=== PATIENT | male | born 1970 | race Caucasian/White ===

== ENCOUNTER → 2019-05-29 | Outpatient (REF) | payer OTHER ==
[2019-05-29 10:58] LABS: BASO % 0.4 % (0.0-1.0); EOS # 0.3 10^3/uL (0.0-0.50); EOS % 3.6 % (0.0-3.0); HEMATOCRIT 47.1 % (42.0-52.0); HEMOGLOBIN 15.9 g/dl (13.5-17.5); LYMPH # 1.8 10^3/uL (1.5-4.5); LYMPH % 23.5 % (24.0-44.0); MEAN CORPUSCULAR HEMOGLOBIN 31.5 pg (27.0-33.0); MEAN CORPUSCULAR HGB CONC 33.8 g/dl (32.0-36.5); MEAN CORPUSCULAR VOLUME 93.3 fl (80.0-96.0); MONO # 0.9 10^3/uL (0.0-0.8); MONO % 11.7 % (0.0-5.0); NEUTROPHILS # 4.7 10^3/uL (1.8-7.7); NEUTROPHILS % 60.5 % (36.0-66.0); PLATELET COUNT, AUTOMATED 231 10^3/uL (150-450); RED BLOOD COUNT 5.05 10^6/uL (4.30-6.10); WHITE BLOOD COUNT 7.8 10^3/uL (4.0-10.0)
[2019-05-29 11:13] LABS: ALT/SGPT 24 U/L (12-78); BILIRUBIN,TOTAL 0.7 MG/DL (0.2-1.0); BLOOD UREA NITROGEN 24 MG/DL (7-18); CARBON DIOXIDE LEVEL 28 MEQ/L (21-32); CHLORIDE LEVEL 106 MEQ/L (98-107); CHOLESTEROL LEVEL 238 MG/DL (<200); CHOLESTEROL RISK RATIO 4.666 (<5); CREATININE FOR GFR 1.29 MG/DL (0.70-1.30); FREE T4 0.74 NG/DL (0.76-1.46); GLOMERULAR FILTRATION RATE > 60.0 (>60); GLUCOSE, FASTING 104 MG/DL (70-100); HDL CHOLESTEROL 51 MG/DL (>40); LDL CHOLESTEROL 163 MG/DL (<100); NON-HDL-C 187 MG/DL; POTASSIUM SERUM 4.2 MEQ/L (3.5-5.1); SODIUM LEVEL 141 MEQ/L (136-145); TOTAL PROTEIN 7.7 GM/DL (6.4-8.2); TRIGLYCERIDES LEVEL 119 MG/DL (<150)
[2019-05-29 11:24] LABS: HEMOGLOBIN A1c 5.8 %
== END ==
LOC: M SFHCPLAZ 08:13
PROVIDERS: ATTEND Physician Assistant Medical
DX: Z13.220 Encounter for screening for lipoid disorders (principal); Z00.00 Encounter for general adult medical examination without abnormal findings; E66.9 Obesity, unspecified

== ENCOUNTER → 2022-11-24 | Outpatient (CLI) | payer OTHER ==
[2022-11-24 14:02] LABS: BASO % 0.6 % (0.0-1.0); EOS # 0.2 10^3/uL (0.0-0.5); EOS % 2.5 % (0.0-3.0); HEMATOCRIT 47.8 % (42.0-52.0); HEMOGLOBIN 16.1 g/dl (13.5-17.5); LYMPH % 31.4 % (24.0-44.0); MEAN CORPUSCULAR HEMOGLOBIN 30.7 pg (27.0-33.0); MEAN CORPUSCULAR HGB CONC 33.7 g/dl (32.0-36.5); MEAN CORPUSCULAR VOLUME 91.2 fl (80.0-96.0); MONO # 0.8 10^3/uL (0.0-0.8); MONO % 12.6 % (2.0-8.0); NEUTROPHILS # 3.4 10^3/uL (1.5-8.5); NEUTROPHILS % 52.6 % (36.0-66.0); PLATELET COUNT, AUTOMATED 277 10^3/uL (150-450); RED BLOOD COUNT 5.24 10^6/uL (4.30-6.10); WHITE BLOOD COUNT 6.4 10^3/uL (4.0-10.0)
[2022-11-24 14:23] LABS: HEMOGLOBIN A1c 5.9 % (4.0-6.0)
[2022-11-24 14:28] LABS: ALBUMIN 4.2 G/DL (3.2-5.2); ALKALINE PHOSPHATASE 72 U/L (46-116); ALT/SGPT 20 U/L (7.0-40); AST/SGOT 27 U/L (<34); BILIRUBIN,TOTAL 0.6 MG/DL (0.3-1.2); BLOOD UREA NITROGEN 24 MG/DL (9-23); CALCIUM LEVEL 9.9 MG/DL (8.5-10.1); CARBON DIOXIDE LEVEL 29 MMOL/L (20-31); CHLORIDE LEVEL 101 MMOL/L (98-107); CHOLESTEROL LEVEL 239 MG/DL (<200); CHOLESTEROL RISK RATIO 4.41 (<5); CREATININE FOR GFR 1.21 MG/DL (0.70-1.30); GLOMERULAR FILTRATION RATE > 60.0 (>56); GLUCOSE, FASTING 108 MG/DL (60-100); HDL CHOLESTEROL 54.1 MG/DL (>40); LDL CHOLESTEROL 158.5 MG/DL (<100); NON-HDL-C 185 MG/DL; POTASSIUM SERUM 5.1 MMOL/L (3.5-5.1); SODIUM LEVEL 138 MMOL/L (136-145); TOTAL PROTEIN 7.6 G/DL (5.7-8.2); TRIGLYCERIDES LEVEL 132 MG/DL (<150)
[2022-11-24 14:29] LABS: THYROID STIMULATING HORMONE 4.242 uIU/ML (0.55-4.78)
[2022-11-24 14:30] LABS: FREE T4 0.86 NG/DL (0.89-1.76)
== END ==
LOC: M PLALAB 10:22
PROVIDERS: ATTEND Physician Assistant Medical
DX: E11.69 Type 2 diabetes mellitus with other specified complication (principal); M24.152 Other articular cartilage disorders, left hip; M24.151 Other articular cartilage disorders, right hip; M51.37 Other intervertebral disc degeneration, lumbosacral region; M54.32 Sciatica, left side; M25.552 Pain in left hip; E78.5 Hyperlipidemia, unspecified; E03.9 Hypothyroidism, unspecified; E66.9 Obesity, unspecified

== ENCOUNTER → 2023-04-07 | Outpatient (CLI) | payer OTHER | LOC: M PLAIMG 10:35 | PROVIDERS: ATTEND Physician Assistant | DX: M54.32 Sciatica, left side (principal) ==

== ENCOUNTER → 2023-05-10 | Outpatient (CLI) | payer OTHER ==
[2023-05-10 15:00] LABS: BASO % 0.5 % (0.0-1.0); EOS # 0.1 10^3/uL (0.0-0.5); EOS % 2.5 % (0.0-3.0); HEMATOCRIT 44.8 % (42.0-52.0); HEMOGLOBIN 15.2 g/dl (13.5-17.5); LYMPH # 1.7 10^3/uL (1.5-5.0); LYMPH % 29.9 % (24.0-44.0); MEAN CORPUSCULAR HEMOGLOBIN 30.5 pg (27.0-33.0); MEAN CORPUSCULAR HGB CONC 33.9 g/dl (32.0-36.5); MEAN CORPUSCULAR VOLUME 89.8 fl (80.0-96.0); MONO # 0.7 10^3/uL (0.0-0.8); MONO % 12.8 % (2.0-8.0); NEUTROPHILS # 3.1 10^3/uL (1.5-8.5); NEUTROPHILS % 54.1 % (36.0-66.0); PLATELET COUNT, AUTOMATED 231 10^3/uL (150-450); RED BLOOD COUNT 4.99 10^6/uL (4.30-6.10); WHITE BLOOD COUNT 5.7 10^3/uL (4.0-10.0)
[2023-05-10 15:02] LABS: ALBUMIN 4.2 G/DL (3.2-5.2); ALKALINE PHOSPHATASE 65 U/L (46-116); ALT/SGPT 19 U/L (7.0-40); AST/SGOT 25 U/L (<34); BILIRUBIN,TOTAL 0.7 MG/DL (0.3-1.2); BLOOD UREA NITROGEN 22 MG/DL (9-23); CARBON DIOXIDE LEVEL 26 MMOL/L (20-31); CHLORIDE LEVEL 104 MMOL/L (98-107); CHOLESTEROL LEVEL 209 MG/DL (<200); CHOLESTEROL RISK RATIO 4.34 (<5); GLOMERULAR FILTRATION RATE > 60.0 (>56); GLUCOSE, FASTING 99 MG/DL (60-100); HDL CHOLESTEROL 48.1 MG/DL (>40); LDL CHOLESTEROL 135.1 MG/DL (<100); NON-HDL-C 160.9 MG/DL; POTASSIUM SERUM 4.3 MMOL/L (3.5-5.1); SODIUM LEVEL 137 MMOL/L (136-145); TOTAL PROTEIN 7.5 G/DL (5.7-8.2); TRIGLYCERIDES LEVEL 129 MG/DL (<150)
[2023-05-10 17:39] LABS: HEMOGLOBIN A1c 6.2 % (4.0-6.0)
== END ==
LOC: M PLALAB 10:36
PROVIDERS: ATTEND Physician Assistant Medical
DX: R03.0 Elevated blood-pressure reading, without diagnosis of hypertension (principal); E66.9 Obesity, unspecified; Z13.220 Encounter for screening for lipoid disorders

== ENCOUNTER → 2023-12-19 | Outpatient (CLI) | payer OTHER ==
[2023-12-19 16:10] LABS: BASO % 0.4 % (0.0-1.0); EOS # 0.1 10^3/uL (0.0-0.5); EOS % 1.7 % (0.0-3.0); HEMATOCRIT 45.6 % (42.0-52.0); HEMOGLOBIN 15.3 g/dl (13.5-17.5); LYMPH # 1.8 10^3/uL (1.5-5.0); LYMPH % 23.7 % (24.0-44.0); MEAN CORPUSCULAR HEMOGLOBIN 30.8 pg (27.0-33.0); MEAN CORPUSCULAR HGB CONC 33.6 g/dl (32.0-36.5); MEAN CORPUSCULAR VOLUME 91.9 fl (80.0-96.0); MONO # 0.8 10^3/uL (0.0-0.8); MONO % 10.5 % (2.0-8.0); NEUTROPHILS # 4.8 10^3/uL (1.5-8.5); NEUTROPHILS % 63.4 % (36.0-66.0); PLATELET COUNT, AUTOMATED 247 10^3/uL (150-450); RED BLOOD COUNT 4.96 10^6/uL (4.30-6.10); WHITE BLOOD COUNT 7.6 10^3/uL (4.0-10.0)
[2023-12-19 16:22] LABS: ERYTHROCYTE SEDIMENTATION RATE 25 mm/hr (0-20)
[2023-12-19 16:32] LABS: URIC ACID 6.4 MG/DL (3.7-9.2)
[2023-12-19 20:26] LABS: RHEUMATOID FACTOR QUANT < 3.5 IU/ML (<14)
[2023-12-21 14:09] LABS: ANTINUCLEAR ANTIBODIES DIRECT Negative (Negative)
== END ==
LOC: M PLALAB 12:05
PROVIDERS: ATTEND Orthopaedic Surgery
DX: M16.12 Unilateral primary osteoarthritis, left hip (principal)

== ENCOUNTER → 2024-02-12 | Outpatient (CLI) | payer OTHER ==
[~2024-02-12] MED LIST: ISOVUE-300 61% 100ML VIAL As Ordered ONE; LIDOCAINE 1% MDV 20ML VIAL As Ordered ONE; TRIAMCINOLONE ACETONIDE SUSP 40MG/ML 1ML VIAL As Ordered ONE
== END ==
LOC: M RAD 13:24
PROVIDERS: ATTEND Orthopaedic Surgery
DX: M16.12 Unilateral primary osteoarthritis, left hip (principal)
CPT/HCPCS: 20610; 77002; J3301; Q9967

== ENCOUNTER 2024-04-09 11:20 | Observation (INO) | payer OTHER ==
[~2024-04-09] VITALS: Ht 165.1 cm; Wt 96.5 kg
[2024-04-09] MEDS ORDERED: MELO15TA28 PO (11:31)
[2024-04-09 12:41] LABS: BASO % 0.4 % (0.0-1.0); EOS # 0.1 10^3/uL (0.0-0.5); EOS % 0.5 % (0.0-3.0); HEMATOCRIT 45.5 % (42.0-52.0); HEMOGLOBIN 15.5 g/dl (13.5-17.5); LYMPH # 2.3 10^3/uL (1.5-5.0); LYMPH % 20.8 % (24.0-44.0); MEAN CORPUSCULAR HEMOGLOBIN 30.6 pg (27.0-33.0); MEAN CORPUSCULAR HGB CONC 34.1 g/dl (32.0-36.5); MEAN CORPUSCULAR VOLUME 89.9 fl (80.0-96.0); MONO # 1.5 10^3/uL (0.0-0.8); MONO % 13.6 % (2.0-8.0); NEUTROPHILS % 64.3 % (36.0-66.0); PLATELET COUNT, AUTOMATED 200 10^3/uL (150-450); RED BLOOD COUNT 5.06 10^6/uL (4.30-6.10); WHITE BLOOD COUNT 10.9 10^3/uL (4.0-10.0)
[2024-04-09 13:07] LABS: ALBUMIN 3.6 G/DL (3.2-5.2); ALKALINE PHOSPHATASE 89 U/L (46-116); ALT/SGPT 37 U/L (7.0-40); AST/SGOT 41 U/L (<34); BILIRUBIN,DIRECT 0.4 MG/DL (<0.4); BILIRUBIN,TOTAL 1.6 MG/DL (0.3-1.2); BLOOD UREA NITROGEN 19 MG/DL (9-23); CALCIUM LEVEL 8.9 MG/DL (8.5-10.1); CARBON DIOXIDE LEVEL 25 MMOL/L (20-31); CHLORIDE LEVEL 99 MMOL/L (98-107); CK-MB VALUE MASS 4.4 NG/ML (<3.6); CPK CREATINE PHOSPHOKINASE 366 U/L (46-171); CREATININE FOR GFR 1.31 MG/DL (0.70-1.30); GLOMERULAR FILTRATION RATE > 60.0 (>56); GLUCOSE, FASTING 173 MG/DL (60-100); POTASSIUM SERUM 3.8 MMOL/L (3.5-5.1); SODIUM LEVEL 134 MMOL/L (136-145)
[2024-04-09 13:08] LABS: THYROXINE (T4) 7.3 UG/DL (4.5-10.9)
[2024-04-09 13:09] LABS: THYROID STIMULATING HORMONE 4.682 uIU/ML (0.55-4.78)
[2024-04-09] MEDS: NS 500 ML IV ONE (13:10)
[2024-04-09] MEDS: ASPIRIN 81MG CHEW TABLET PO ONE (13:38)
[2024-04-09] MEDS ORDERED: ISOVUE-370 76% 100ML VIAL As Ordered ONE (13:53)
[2024-04-09 14:15] LABS: CK-MB VALUE MASS 4.6 NG/ML (<3.6); MB/CK RELATIVE INDEX 1.23 (< OR =4)
[2024-04-09] MEDS ORDERED: HEPARIN DRIP 25,000 UNITS in IV 1 EA IV SCH (16:00)
[2024-04-09 16:02] LABS: INR 1.23; PARTIAL THROMBOPLASTIN TIME 25.6 SECONDS (24.8-34.2); PROTHROMBIN TIME 15.1 SECONDS (12.5-14.5)
[2024-04-09] MEDS ORDERED: MAALOX 30 ML SUSP *UDC PO PRN (16:35)
[2024-04-09] MEDS ORDERED: MOM 30ML SUSPENSION UDC PO PRN (16:35)
[2024-04-09] MEDS ORDERED: HEPARIN SOD (PORCINE) 5000UNITS/ML 1ML VIAL/SYRINGE IV ONE (16:35)
[2024-04-09] MEDS ORDERED: ACETAMINOPHEN TAB 650MG DOSE (2X325MG) PO PRN (16:35)
[2024-04-09] MEDS ORDERED: HEPARIN SOD (PORCINE) 5000UNITS/ML 1ML VIAL/SYRINGE IV PRN (16:35)
[2024-04-09] MEDS: HEPARIN SOD (PORCINE) 5000UNITS/ML 1ML VIAL/SYRINGE IV ONE (17:07)
[2024-04-09] MEDS: HEPARIN DRIP 25,000 UNITS in IV 1 EA IV SCH (17:12)
[2024-04-09 17:35] LABS: HEMATOCRIT 44.2 % (42.0-52.0); HEMOGLOBIN 15.5 g/dl (13.5-17.5); MEAN CORPUSCULAR HEMOGLOBIN 31.1 pg (27.0-33.0); MEAN CORPUSCULAR HGB CONC 35.1 g/dl (32.0-36.5); MEAN CORPUSCULAR VOLUME 88.8 fl (80.0-96.0); PLATELET COUNT, AUTOMATED 184 10^3/uL (150-450); RED BLOOD COUNT 4.98 10^6/uL (4.30-6.10); WHITE BLOOD COUNT 10.1 10^3/uL (4.0-10.0)
[2024-04-09] MEDS: NS 1,000 ML IV SCH (17:44)
[2024-04-09] MEDS ORDERED: HOME MED LIST COMPLETE! XX SCH (17:55)
[2024-04-09 18:17] LABS: HEPATITIS B SURFACE ANTIGEN NEGATIVE (NEGATIVE)
[2024-04-09 18:39] LABS: HEPATITIS B CORE ANTIBODY IGM NEGATIVE (NEGATIVE); HEPATITIS C VIRUS ABY INDEX < 0.02 INDEX (<0.8)
[2024-04-09 19:47] LABS: CK-MB VALUE MASS 4.2 NG/ML (<3.6); MB/CK RELATIVE INDEX 1.23 (< OR =4)
[2024-04-09] MEDS: DOCUSATE SODIUM 100MG CAPSULE PO SCH (20:48)
[2024-04-09 22:01] VITALS: BP 136/85; TEMP 97.2; O2SAT 95
[2024-04-09 23:55] VITALS: BP 119/75; TEMP 97; O2SAT 96
[2024-04-10] VITALS: BP 119/75; TEMP 97; O2SAT 96
[2024-04-10 00:25] LABS: CK-MB VALUE MASS 4.7 NG/ML (<3.6); MB/CK RELATIVE INDEX 1.45 (< OR =4)
[2024-04-10 04:18] VITALS: BP 112/74; TEMP 97.1; O2SAT 98
[2024-04-10 05:59] LABS: BASO % 0.3 % (0.0-1.0); EOS # 0.2 10^3/uL (0.0-0.5); EOS % 2.6 % (0.0-3.0); LYMPH # 2.3 10^3/uL (1.5-5.0); LYMPH % 26.3 % (24.0-44.0); MEAN CORPUSCULAR HEMOGLOBIN 30.9 pg (27.0-33.0); MEAN CORPUSCULAR HGB CONC 33.3 g/dl (32.0-36.5); MEAN CORPUSCULAR VOLUME 92.8 fl (80.0-96.0); MONO % 11.2 % (2.0-8.0); NEUTROPHILS # 5.2 10^3/uL (1.5-8.5); NEUTROPHILS % 59.3 % (36.0-66.0); PLATELET COUNT, AUTOMATED 170 10^3/uL (150-450); RED BLOOD COUNT 4.33 10^6/uL (4.30-6.10); WHITE BLOOD COUNT 8.8 10^3/uL (4.0-10.0)
[2024-04-10 06:11] LABS: HEMOGLOBIN 13.4 g/dl (13.5-17.5)
[2024-04-10 06:12] LABS: HEMATOCRIT 40.2 % (42.0-52.0)
[2024-04-10 06:22] LABS: ALBUMIN 2.9 G/DL (3.2-5.2); ALKALINE PHOSPHATASE 70 U/L (46-116); ALT/SGPT 28 U/L (7.0-40); AST/SGOT 28 U/L (<34); BLOOD UREA NITROGEN 17 MG/DL (9-23); CALCIUM LEVEL 8.1 MG/DL (8.5-10.1); CARBON DIOXIDE LEVEL 28 MMOL/L (20-31); CHLORIDE LEVEL 104 MMOL/L (98-107); CREATININE FOR GFR 1.09 MG/DL (0.70-1.30); GLOMERULAR FILTRATION RATE > 60.0 (>56); GLUCOSE, FASTING 175 MG/DL (60-100); MAGNESIUM LEVEL 2.1 MG/DL (1.8-2.4); POTASSIUM SERUM 4.1 MMOL/L (3.5-5.1); SODIUM LEVEL 138 MMOL/L (136-145); TOTAL PROTEIN 5.9 G/DL (5.7-8.2)
[2024-04-10 07:30] VITALS: BP 118/78; TEMP 97.3; O2SAT 98
[2024-04-10] MEDS ORDERED: ELIQ5TAB4 PO (10:44)
[2024-04-10] MEDS: APIXABAN 5 MG TAB (ELIQUIS) PO ONE (11:12)
[2024-04-10] MEDS ORDERED: ELIQ5TAB PO (11:29)
[2024-04-10 12:00] VITALS: BP 130/84; TEMP 97.7; O2SAT 94
[2024-04-10 13:15] VITALS: BP 135/87; O2SAT 98
[2024-04-10] MEDS ORDERED: APIXABAN 5 MG TAB (ELIQUIS) PO SCH (21:00)
[2024-04-16] MEDS ORDERED: APIXABAN 5 MG TAB (ELIQUIS) PO SCH (21:00)
== END 2024-04-10 15:22 | disposition home or self-care (01) ==
LOC: M ED 11:20 → M ED INP 11:21 → M PCU 21:53
PROVIDERS: ADMIT Internal Medicine; ATTEND Internal Medicine
DX: I26.99 Other pulmonary embolism without acute cor pulmonale (principal); R06.00 Dyspnea, unspecified; R79.89 Other specified abnormal findings of blood chemistry; R74.02 Elevation of levels of lactic acid dehydrogenase [LDH]; N17.9 Acute kidney failure, unspecified; R74.01 Elevation of levels of liver transaminase levels; D72.829 Elevated white blood cell count, unspecified; M16.12 Unilateral primary osteoarthritis, left hip; I82.441 Acute embolism and thrombosis of right tibial vein; I82.890 Acute embolism and thrombosis of other specified veins; K76.0 Fatty (change of) liver, not elsewhere classified; R00.0 Tachycardia, unspecified; I45.2 Bifascicular block; Z79.899 Other long term (current) drug therapy
CPT/HCPCS: 36415; 71045; 71275; 76705; 80048; 80053; 80074; 80076; 81001; 82550; 82553; 83605; 83735; 83880; 84436; 84443; 84484; 85025; 85027; 85610; 85730; 87040; 87486; 87581; 87633; 87798; 93005; 93041; 93306; 93970; 94760; 96374; 96376; 97161; 97530; 99285; Q9967

== ENCOUNTER → 2024-04-22 | Outpatient (CLI) | payer OTHER, SELFPAY ==
[~2024-04-22] MED LIST changes: +ELIQ5TAB PO; +ELIQ5TAB4 PO; -ISOVUE-300 61% 100ML VIAL As Ordered ONE; -LIDOCAINE 1% MDV 20ML VIAL As Ordered ONE; +MELO15TA28 PO; -TRIAMCINOLONE ACETONIDE SUSP 40MG/ML 1ML VIAL As Ordered ONE
[2024-04-22 18:22] LABS: INR 1.06; PARTIAL THROMBOPLASTIN TIME 26.7 SECONDS (24.8-34.2); PROTHROMBIN TIME 13.5 SECONDS (12.5-14.5)
[2024-04-22 18:26] LABS: BASO # 0.1 10^3/uL (0.0-0.2); BASO % 0.7 % (0.0-1.0); EOS # 0.2 10^3/uL (0.0-0.5); EOS % 2.3 % (0.0-3.0); HEMATOCRIT 46.3 % (42.0-52.0); HEMOGLOBIN 15.7 g/dl (13.5-17.5); LYMPH # 2.2 10^3/uL (1.5-5.0); LYMPH % 29.8 % (24.0-44.0); MEAN CORPUSCULAR HEMOGLOBIN 30.8 pg (27.0-33.0); MEAN CORPUSCULAR HGB CONC 33.9 g/dl (32.0-36.5); MONO # 0.8 10^3/uL (0.0-0.8); MONO % 10.5 % (2.0-8.0); NEUTROPHILS # 4.2 10^3/uL (1.5-8.5); NEUTROPHILS % 56.4 % (36.0-66.0); PLATELET COUNT, AUTOMATED 320 10^3/uL (150-450); RED BLOOD COUNT 5.09 10^6/uL (4.30-6.10); WHITE BLOOD COUNT 7.4 10^3/uL (4.0-10.0)
[2024-04-22 18:28] LABS: CK-MB VALUE MASS 4.5 NG/ML (<3.6)
[2024-04-22 18:52] LABS: ALBUMIN 4.3 G/DL (3.2-5.2); ALKALINE PHOSPHATASE 87 U/L (46-116); ALT/SGPT 25 U/L (7.0-40); AST/SGOT 23 U/L (<34); BILIRUBIN,TOTAL 0.8 MG/DL (0.3-1.2); BLOOD UREA NITROGEN 20 MG/DL (9-23); CALCIUM LEVEL 9.9 MG/DL (8.5-10.1); CARBON DIOXIDE LEVEL 28 MMOL/L (20-31); CHLORIDE LEVEL 103 MMOL/L (98-107); CPK CREATINE PHOSPHOKINASE 245 U/L (46-171); CREATININE FOR GFR 1.18 MG/DL (0.70-1.30); GLOMERULAR FILTRATION RATE > 60.0 (>56); GLUCOSE, FASTING 86 MG/DL (60-100); MB/CK RELATIVE INDEX 1.83 (< OR =4); POTASSIUM SERUM 4.3 MMOL/L (3.5-5.1); SODIUM LEVEL 138 MMOL/L (136-145); TOTAL PROTEIN 7.9 G/DL (5.7-8.2)
== END ==
LOC: M PLALAB 14:52
PROVIDERS: ATTEND Physician Assistant Medical
DX: I26.94 Multiple subsegmental thrombotic pulmonary emboli without acute cor pulmonale (principal); D72.829 Elevated white blood cell count, unspecified; E87.20 Acidosis, unspecified; R74.01 Elevation of levels of liver transaminase levels; R79.89 Other specified abnormal findings of blood chemistry

== ENCOUNTER 2024-07-20 10:14 | Inpatient (IN) | payer OTHER, SELFPAY ==
[~2024-07-20] VITALS: Ht 165.1 cm; Wt 97.9 kg
[2024-07-20] MEDS ORDERED: ONDANSETRON 4MG 2ML VIAL IV ONE (11:30)
[2024-07-20] MEDS ORDERED: MORPHINE 4 MG/ML 1ML VIAL IV ONE (11:30)
[2024-07-20] MEDS: ACETAMINOPHEN *IV* 1,000 MG in IV 1 EA IV ONE (12:37)
[2024-07-20 12:46] LABS: BASO % 0.4 % (0.0-1.0); EOS # 0.3 10^3/uL (0.0-0.5); EOS % 2.5 % (0.0-3.0); HEMATOCRIT 39.9 % (42.0-52.0); HEMOGLOBIN 13.6 g/dl (13.5-17.5); LYMPH # 1.8 10^3/uL (1.5-5.0); LYMPH % 17.9 % (24.0-44.0); MEAN CORPUSCULAR HEMOGLOBIN 30.5 pg (27.0-33.0); MEAN CORPUSCULAR HGB CONC 34.1 g/dl (32.0-36.5); MEAN CORPUSCULAR VOLUME 89.5 fl (80.0-96.0); MONO # 1.4 10^3/uL (0.0-0.8); MONO % 14.1 % (2.0-8.0); NEUTROPHILS # 6.6 10^3/uL (1.5-8.5); NEUTROPHILS % 64.9 % (36.0-66.0); PLATELET COUNT, AUTOMATED 197 10^3/uL (150-450); RED BLOOD COUNT 4.46 10^6/uL (4.30-6.10); WHITE BLOOD COUNT 10.1 10^3/uL (4.0-10.0)
[2024-07-20] MEDS ORDERED: ACET1TAB55 PO (12:46)
[2024-07-20] MEDS ORDERED: HOME MED LIST COMPLETE! XX SCH (12:50)
[2024-07-20 13:02] LABS: INR 1.2; PARTIAL THROMBOPLASTIN TIME 25.7 SECONDS (24.8-34.2); PROTHROMBIN TIME 14.8 SECONDS (12.5-14.5)
[2024-07-20 13:09] LABS: ALBUMIN 3.6 G/DL (3.2-5.2); ALKALINE PHOSPHATASE 87 U/L (46-116); ALT/SGPT 19 U/L (7.0-40); AST/SGOT 23 U/L (<34); BILIRUBIN,DIRECT 0.2 MG/DL (<0.4); BILIRUBIN,TOTAL 0.9 MG/DL (0.3-1.2); BLOOD UREA NITROGEN 18 MG/DL (9-23); CALCIUM LEVEL 9.1 MG/DL (8.5-10.1); CARBON DIOXIDE LEVEL 29 MMOL/L (20-31); CHLORIDE LEVEL 105 MMOL/L (98-107); CREATININE FOR GFR 0.91 MG/DL (0.70-1.30); GLOMERULAR FILTRATION RATE > 60.0 (>56); GLUCOSE, FASTING 99 MG/DL (60-100); POTASSIUM SERUM 4.3 MMOL/L (3.5-5.1); SODIUM LEVEL 138 MMOL/L (136-145); TOTAL PROTEIN 7.2 G/DL (5.7-8.2)
[2024-07-20] MEDS ORDERED: ISOVUE-370 76% 100ML VIAL As Ordered ONE (13:18)
[2024-07-20 15:53] LABS: CK-MB VALUE MASS 1.4 NG/ML (<3.6)
[2024-07-20 15:55] LABS: CPK CREATINE PHOSPHOKINASE 218 U/L (46-171); MB/CK RELATIVE INDEX 0.64 (< OR =4)
[2024-07-20] MEDS: HEPARIN SOD (PORCINE) 5000UNITS/ML 1ML VIAL/SYRINGE IV ONE (16:45)
[2024-07-20] MEDS: HEPARIN DRIP 25,000 UNITS in IV 1 EA IV SCH (16:47)
[2024-07-20] MEDS ORDERED: HEPARIN SOD (PORCINE) 5000UNITS/ML 1ML VIAL/SYRINGE IV PRN (17:00)
[2024-07-20] MEDS: NS 1,000 ML IV SCH (19:12)
[2024-07-20 22:05] VITALS: BP 166/88; TEMP 98.4; O2SAT 96
[2024-07-20 22:14] LABS: HEMATOCRIT 39.3 % (42.0-52.0); HEMOGLOBIN 13.1 g/dl (13.5-17.5); MEAN CORPUSCULAR HEMOGLOBIN 30.4 pg (27.0-33.0); MEAN CORPUSCULAR HGB CONC 33.3 g/dl (32.0-36.5); MEAN CORPUSCULAR VOLUME 91.2 fl (80.0-96.0); PLATELET COUNT, AUTOMATED 217 10^3/uL (150-450); RED BLOOD COUNT 4.31 10^6/uL (4.30-6.10); WHITE BLOOD COUNT 9.8 10^3/uL (4.0-10.0)
[2024-07-20] MEDS ORDERED: ACETAMINOPHEN TAB 650MG DOSE (2X325MG) PO PRN (22:25)
[2024-07-20] MEDS: MELOXICAM (MOBIC) 7.5 MG TAB PO ONE (23:13)
[2024-07-20] MEDS: DICLOFENAC EPOLAMINE 1.3% PATCH TOP ONE (23:13)
[2024-07-20 23:14] VITALS: BP 154/88; TEMP 99.3; O2SAT 97
[2024-07-20] MEDS: LIDOCAINE 5% (LIDODERM) PATCH TD ONE (23:14)
[2024-07-21 03:45] VITALS: BP 118/67; TEMP 98.2; O2SAT 100
[2024-07-21 06:44] LABS: BLOOD UREA NITROGEN 13 MG/DL (9-23); CARBON DIOXIDE LEVEL 28 MMOL/L (20-31); CHLORIDE LEVEL 105 MMOL/L (98-107); CREATININE FOR GFR 0.85 MG/DL (0.70-1.30); GLOMERULAR FILTRATION RATE > 60.0 (>56); GLUCOSE, FASTING 164 MG/DL (60-100); POTASSIUM SERUM 3.7 MMOL/L (3.5-5.1); SODIUM LEVEL 137 MMOL/L (136-145)
[2024-07-21 07:38] VITALS: BP 133/77; TEMP 99.3; O2SAT 100
[2024-07-21] MEDS ORDERED: MELOXICAM (MOBIC) 7.5 MG TAB PO SCH (09:00)
[2024-07-21 11:42] VITALS: BP 143/72; TEMP 97.5; O2SAT 99
[2024-07-21 15:30] VITALS: BP 133/63; TEMP 98.3; O2SAT 97
[2024-07-21] MEDS: MELOXICAM (MOBIC) 7.5 MG TAB PO SCH (18:02)
[2024-07-21 19:04] LABS: INR 1.15; PARTIAL THROMBOPLASTIN TIME 57.6 SECONDS (24.8-34.2); PROTHROMBIN TIME 14.4 SECONDS (12.5-14.5)
[2024-07-21 19:25] VITALS: BP 132/69; TEMP 97.7; O2SAT 94
[2024-07-21 23:21] VITALS: BP 135/77; TEMP 98.2; O2SAT 94
[2024-07-22 03:37] VITALS: BP 138/83; TEMP 98; O2SAT 96
[2024-07-22 07:26] VITALS: BP 123/75; TEMP 97.6; O2SAT 97
[2024-07-22] MEDS: APIXABAN 5 MG TAB (ELIQUIS) PO SCH (09:36)
[2024-07-22] MEDS ORDERED: ELIQ5TAB PO ×2 (12:40→14:23)
[2024-07-23 22:27] LABS: CARDIOLIPIN IGA ANTIBODY < 2.0 APL-U/mL (<20.0); CARDIOLIPIN IGG ANTIBODY < 2.0 GPL-U/mL (<20.0); CARDIOLIPIN IGM ANTIBODY < 2.0 MPL-U/mL (<20.0)
[2024-07-25 00:13] LABS: PHOSPHOLIPIDS LEVEL 207 mg/dL (151-264); PROTEIN C FUNCTIONAL ACTIVITY 93 % normal (70-180); PROTEIN S FUNCTIONAL ACTIVITY 92 % normal (70-150)
[2024-07-27] MEDS ORDERED: APIXABAN 5 MG TAB (ELIQUIS) PO SCH (21:00)
== END 2024-07-22 15:10 | disposition home or self-care (01) | DRG 134 ==
LOC: M ED 10:14 → M ED INP 20:54 → M PCU 22:09
PROVIDERS: ADMIT Student in an Organized Health Care Education/Training Program; ATTEND Internal Medicine
PROC: B246ZZZ Ultrasonography of Right and Left Heart (ICD-10-PCS; principal; 2024-07-22)
DX: I26.99 Other pulmonary embolism without acute cor pulmonale (principal); I10 Essential (primary) hypertension; M16.12 Unilateral primary osteoarthritis, left hip; Z79.1 Long term (current) use of non-steroidal anti-inflammatories (NSAID); Z79.899 Other long term (current) drug therapy; I82.411 Acute embolism and thrombosis of right femoral vein; I82.412 Acute embolism and thrombosis of left femoral vein; I82.431 Acute embolism and thrombosis of right popliteal vein; I82.432 Acute embolism and thrombosis of left popliteal vein

== ENCOUNTER → 2024-09-13 | Outpatient (CLI) | payer OTHER ==
[~2024-09-13] MED LIST changes: +ACET1TAB55 PO; +ISOVUE-300 61% 100ML VIAL As Ordered ONE; +LIDOCAINE 1% MDV 20ML VIAL As Ordered ONE; +methylPREDNISolone SUSP 40MG/ML 1ML VIAL (DEPO MEDROL) As Ordered ONE
== END ==
LOC: M RAD 14:05
PROVIDERS: ATTEND Physician Assistant
DX: M16.12 Unilateral primary osteoarthritis, left hip (principal)
CPT/HCPCS: 20610; 77002; J1010; Q9967

== ENCOUNTER → 2024-09-25 | Outpatient (CLI) | payer OTHER ==
[~2024-09-25] MED LIST changes: -ISOVUE-300 61% 100ML VIAL As Ordered ONE; -LIDOCAINE 1% MDV 20ML VIAL As Ordered ONE; -methylPREDNISolone SUSP 40MG/ML 1ML VIAL (DEPO MEDROL) As Ordered ONE
[2024-09-25 14:13] LABS: BASO % 0.4 % (0.0-1.0); EOS # 0.1 10^3/uL (0.0-0.5); EOS % 0.9 % (0.0-3.0); HEMOGLOBIN 14.5 g/dl (13.5-17.5); LYMPH # 1.8 10^3/uL (1.5-5.0); LYMPH % 21.3 % (24.0-44.0); MEAN CORPUSCULAR HEMOGLOBIN 30.3 pg (27.0-33.0); MEAN CORPUSCULAR HGB CONC 33.7 g/dl (32.0-36.5); MONO % 11.8 % (2.0-8.0); NEUTROPHILS # 5.5 10^3/uL (1.5-8.5); NEUTROPHILS % 65.1 % (36.0-66.0); PLATELET COUNT, AUTOMATED 278 10^3/uL (150-450); RED BLOOD COUNT 4.78 10^6/uL (4.30-6.10); WHITE BLOOD COUNT 8.5 10^3/uL (4.0-10.0)
[2024-09-25 14:31] LABS: FREE T4 1.17 NG/DL (0.89-1.76); THYROID STIMULATING HORMONE 2.802 uIU/ML (0.55-4.78)
[2024-09-25 14:36] LABS: ALBUMIN 4.1 G/DL (3.2-5.2); ALKALINE PHOSPHATASE 70 U/L (40-129); ALT/SGPT 13 U/L (7.0-40); AST/SGOT 11 U/L (<34); BILIRUBIN,TOTAL 0.8 MG/DL (0.3-1.2); BLOOD UREA NITROGEN 21 MG/DL (9-23); CALCIUM LEVEL 9.7 MG/DL (8.5-10.1); CARBON DIOXIDE LEVEL 28 MMOL/L (20-31); CHLORIDE LEVEL 106 MMOL/L (98-107); CREATININE FOR GFR 0.81 MG/DL (0.70-1.30); GLOMERULAR FILTRATION RATE > 60.0 (>56); GLUCOSE, FASTING 137 MG/DL (60-100); HEMOGLOBIN A1c 6.4 % (4.0-6.0); POTASSIUM SERUM 4.1 MMOL/L (3.5-5.1); SODIUM LEVEL 139 MMOL/L (136-145); TOTAL PROTEIN 7.6 G/DL (5.7-8.2)
== END ==
LOC: M PLALAB 12:13
PROVIDERS: ATTEND Physician Assistant Medical
DX: R73.01 Impaired fasting glucose (principal); I10 Essential (primary) hypertension; E78.5 Hyperlipidemia, unspecified; E03.9 Hypothyroidism, unspecified

== ENCOUNTER → 2025-01-02 | Outpatient (CLI) | payer OTHER ==
[2025-01-02 12:34] LABS: INR 0.99; PARTIAL THROMBOPLASTIN TIME 27.7 SECONDS (24.8-34.2); PROTHROMBIN TIME 13.4 SECONDS (12.5-14.5)
== END ==
LOC: M PLALAB 10:08
PROVIDERS: ATTEND Physician Assistant Medical
DX: M16.12 Unilateral primary osteoarthritis, left hip (principal)

== ENCOUNTER → 2025-01-30 | Outpatient (CLI) | payer OTHER ==
[2025-01-30 16:02] LABS: HEMOGLOBIN A1c 5.8 % (4.0-6.0)
[2025-01-30 16:11] LABS: ALBUMIN 4.2 G/DL (3.2-5.2); ALKALINE PHOSPHATASE 72 U/L (40-129); ALT/SGPT 18 U/L (7.0-40); AST/SGOT 24 U/L (<34); BILIRUBIN,TOTAL 0.7 MG/DL (0.3-1.2); BLOOD UREA NITROGEN 18 MG/DL (9-23); C REACTIVE PROTEIN QUANTITATIV < 0.50 MG/DL (<1.0); CALCIUM LEVEL 9.6 MG/DL (8.5-10.1); CARBON DIOXIDE LEVEL 28 MMOL/L (20-31); CHLORIDE LEVEL 103 MMOL/L (98-107); CHOLESTEROL LEVEL 247 MG/DL (<200); CHOLESTEROL RISK RATIO 4.68 (<5); CREATININE FOR GFR 0.96 MG/DL (0.70-1.30); FREE T4 1.07 NG/DL (0.89-1.76); GLOMERULAR FILTRATION RATE > 60.0 (>56); GLUCOSE, FASTING 105 MG/DL (60-100); HDL CHOLESTEROL 52.7 MG/DL (>40); LDL CHOLESTEROL 163.5 MG/DL (<100); NON-HDL-C 194.3 MG/DL; POTASSIUM SERUM 4.2 MMOL/L (3.5-5.1); SODIUM LEVEL 140 MMOL/L (136-145); TOTAL PROTEIN 7.8 G/DL (5.7-8.2); TRIGLYCERIDES LEVEL 154 MG/DL (<150)
[2025-01-30 16:12] LABS: THYROID STIMULATING HORMONE 3.069 uIU/ML (0.55-4.78)
== END ==
LOC: M PLALAB 12:25 → M LAB 12:25
PROVIDERS: ATTEND Family Medicine
DX: E78.5 Hyperlipidemia, unspecified (principal); I10 Essential (primary) hypertension; R73.01 Impaired fasting glucose; Z86.718 Personal history of other venous thrombosis and embolism

== ENCOUNTER 2025-03-04 11:46 | Emergency (ER) | payer OTHER ==
[~2025-03-04] VITALS: Ht 165.1 cm; Wt 89.1 kg
[~2025-03-04 11:46] MED LIST changes: +CARV3.12 PO; +NORV5TAB PO; +ROSU10TA61 PO
[2025-03-04 13:37] LABS: BASO % 0.4 % (0.0-1.0); EOS # 0.2 10^3/uL (0.0-0.5); EOS % 2.6 % (0.0-3.0); HEMOGLOBIN 10.9 g/dl (13.5-17.5); LYMPH # 1.8 10^3/uL (1.5-5.0); LYMPH % 21.8 % (24.0-44.0); MEAN CORPUSCULAR HEMOGLOBIN 30.5 pg (27.0-33.0); MEAN CORPUSCULAR HGB CONC 34.1 g/dl (32.0-36.5); MEAN CORPUSCULAR VOLUME 89.6 fl (80.0-96.0); MONO # 1.1 10^3/uL (0.0-0.8); MONO % 13.3 % (2.0-8.0); NEUTROPHILS # 5.2 10^3/uL (1.5-8.5); NEUTROPHILS % 61.5 % (36.0-66.0); PLATELET COUNT, AUTOMATED 296 10^3/uL (150-450); RED BLOOD COUNT 3.57 10^6/uL (4.30-6.10); WHITE BLOOD COUNT 8.5 10^3/uL (4.0-10.0)
[2025-03-04 13:44] LABS: ERYTHROCYTE SEDIMENTATION RATE 65 mm/hr (0-20)
[2025-03-04 14:07] LABS: BLOOD UREA NITROGEN 14 MG/DL (9-23); CALCIUM LEVEL 8.8 MG/DL (8.5-10.1); CARBON DIOXIDE LEVEL 27 MMOL/L (20-31); CHLORIDE LEVEL 102 MMOL/L (98-107); CREATININE FOR GFR 0.77 MG/DL (0.70-1.30); GLOMERULAR FILTRATION RATE > 90.0 (>56); GLUCOSE, FASTING 128 MG/DL (60-100); POTASSIUM SERUM 4.1 MMOL/L (3.5-5.1); SODIUM LEVEL 138 MMOL/L (136-145)
[2025-03-04 14:19] LABS: PROCALCITONIN 0.17 ng/ml
[2025-03-04 14:24] LABS: C REACTIVE PROTEIN QUANTITATIV 15.94 MG/DL (<1.0)
[2025-03-04 16:21] VITALS: BP 135/76; TEMP 98.7; O2SAT 99
== END 2025-03-04 16:43 | disposition home or self-care (01) ==
LOC: M ED 11:46
DX: Z48.817 Encounter for surgical aftercare following surgery on the skin and subcutaneous tissue (principal); Z86.711 Personal history of pulmonary embolism; Z79.01 Long term (current) use of anticoagulants; Z79.899 Other long term (current) drug therapy

== ENCOUNTER 2025-03-10 13:03 | Emergency (ER) | payer OTHER ==
[~2025-03-10] VITALS: Ht 165.1 cm; Wt 86.8 kg
[2025-03-10 13:11] VITALS: TEMP 99.3
[2025-03-10 19:15] VITALS: BP 147/82; O2SAT 100
== END 2025-03-10 19:22 | disposition home or self-care (01) ==
LOC: M ED 13:03
DX: I82.432 Acute embolism and thrombosis of left popliteal vein (principal); Z86.711 Personal history of pulmonary embolism; Z86.718 Personal history of other venous thrombosis and embolism; Z79.01 Long term (current) use of anticoagulants; Z79.899 Other long term (current) drug therapy

== ENCOUNTER → 2025-03-10 | Outpatient (CLI) | payer OTHER | LOC: M RAD 11:03 | PROVIDERS: ATTEND Student in an Organized Health Care Education/Training Program | DX: M79.662 Pain in left lower leg (principal) ==

== ENCOUNTER → 2025-03-12 | Outpatient (POV) | payer OTHER ==
[~2025-03-12] VITALS: Ht 162.6 cm; Wt 86.8 kg
[2025-03-12 13:15] VITALS: BP 146/88; O2SAT 100
== END ==
LOC: M IRPOV 14:51
PROVIDERS: ATTEND Radiology Diagnostic Radiology
DX: I82.512 Chronic embolism and thrombosis of left femoral vein (principal); I82.532 Chronic embolism and thrombosis of left popliteal vein; Z79.01 Long term (current) use of anticoagulants; Z95.828 Presence of other vascular implants and grafts; Z96.642 Presence of left artificial hip joint

== ENCOUNTER → 2025-04-09 | Outpatient (CLI) | payer OTHER ==
[~2025-04-09] MED LIST changes: +WARF-18 PO; +WARF-23 PO
[2025-04-09 12:57] LABS: INR 2.26
== END ==
LOC: M PLALAB 10:12
PROVIDERS: ATTEND Physician Assistant Medical
DX: Z79.01 Long term (current) use of anticoagulants (principal)

== ENCOUNTER → 2025-04-21 | Outpatient (CLI) | payer OTHER ==
[2025-04-21 15:04] LABS: INR 3.72; PROTHROMBIN TIME 36.5 SECONDS (12.5-14.5)
== END ==
LOC: M PLALAB 12:36
PROVIDERS: ATTEND Physician Assistant Medical
DX: D68.1 Hereditary factor XI deficiency (principal)

== ENCOUNTER → 2025-05-08 | Outpatient (REF) | payer OTHER ==
[2025-05-08 13:05] LABS: INR 3.53; PROTHROMBIN TIME 35.1 SECONDS (12.5-14.5)
== END ==
LOC: M SFHCPLAZ 11:40
PROVIDERS: ATTEND Physician Assistant Medical
DX: D68.51 Activated protein C resistance (principal)

== ENCOUNTER → 2025-05-19 | Outpatient (CLI) | payer OTHER ==
[~2025-05-19] MED LIST changes: +ISOVUE-370 76% 100 ML VIAL As Ordered ONE
== END ==
LOC: M RAD 08:35
PROVIDERS: ATTEND Family Medicine
DX: J84.10 Pulmonary fibrosis, unspecified (principal); R91.8 Other nonspecific abnormal finding of lung field; R59.0 Localized enlarged lymph nodes
CPT/HCPCS: 71260; Q9967

== ENCOUNTER → 2025-05-21 | Outpatient (POV) | payer OTHER ==
[~2025-05-21] MED LIST changes: -ISOVUE-370 76% 100 ML VIAL As Ordered ONE
== END ==
LOC: M IRPOV 11:30
PROVIDERS: ATTEND Radiology Diagnostic Radiology
DX: D68.51 Activated protein C resistance (principal); Z79.01 Long term (current) use of anticoagulants; Z95.828 Presence of other vascular implants and grafts

== ENCOUNTER → 2025-06-09 | Outpatient (CLI) | payer OTHER ==
[2025-06-09 13:04] LABS: INR 2.45
== END ==
LOC: M PLALAB 10:25
PROVIDERS: ATTEND Physician Assistant Medical
DX: Z79.01 Long term (current) use of anticoagulants (principal)

== ENCOUNTER → 2025-06-27 | Outpatient (CLI) | payer OTHER ==
[~2025-06-27] MED LIST changes: +HEPARIN 1,000 UNITS/ML 10 ML VIAL (FOR RADIOLOGY & DIALYSIS ONLY) IV PRN; +NS (Normal Saline) 0.9% 1,000 ML IV SCH
[2025-06-27 13:47] VITALS: TEMP 97.7
[2025-06-27] MEDS: MIDAZOLAM INJ 2 MG/2 ML VIAL IV PRN (14:23)
[2025-06-27] MEDS: NS (Normal Saline) 0.9% 1,000 ML IV SCH (14:24)
[2025-06-27] MEDS: LIDOCAINE 1% MDV 20 ML VIAL SC SCH (14:44)
[2025-06-27] MEDS: ISOVUE-300 61% 100 ML VIAL IV SCH (14:45)
[2025-06-27 15:45] VITALS: BP 126/76; O2SAT 98
== END ==
LOC: M IRPRO 12:26
PROVIDERS: ATTEND Registered Nurse School
DX: Z86.711 Personal history of pulmonary embolism (principal)
CPT/HCPCS: 37193; 99152; 99153; J2250; J3010; Q9967

== ENCOUNTER → 2025-07-16 | Outpatient (CLI) | payer OTHER ==
[~2025-07-16] MED LIST changes: -HEPARIN 1,000 UNITS/ML 10 ML VIAL (FOR RADIOLOGY & DIALYSIS ONLY) IV PRN; -NS (Normal Saline) 0.9% 1,000 ML IV SCH
[2025-07-16 13:35] LABS: INR 2.37
== END ==
LOC: M PLALAB 10:36
PROVIDERS: ATTEND Physician Assistant Medical
DX: D68.51 Activated protein C resistance (principal)

== ENCOUNTER → 2025-08-20 | Outpatient (CLI) | payer OTHER ==
[2025-08-20 13:11] LABS: INR 2.71
== END ==
LOC: M PLALAB 10:39
PROVIDERS: ATTEND Physician Assistant Medical
DX: D68.51 Activated protein C resistance (principal)

== ENCOUNTER → 2025-10-13 | Outpatient (CLI) | payer OTHER ==
[~2025-10-13] MED LIST changes: -ROSU10TA61 PO; +ROSU10TA90 PO
[2025-10-13 13:22] LABS: BASO # 0.0 10^3/uL (0.0-0.2); BASO % 0.5 % (0.0-1.0); EOS # 0.2 10^3/uL (0.0-0.5); EOS % 3.2 % (0.0-3.0); LYMPH # 1.3 10^3/uL (1.5-5.0); LYMPH % 22.7 % (24.0-44.0); MONO # 0.8 10^3/uL (0.0-0.8); MONO % 13.1 % (2.0-8.0); NEUTROPHILS # 3.5 10^3/uL (1.5-8.5); NEUTROPHILS % 60.3 % (36.0-66.0); PLATELET COUNT, AUTOMATED 264 10^3/uL (150-450)
[2025-10-13 13:33] LABS: ESTIMATED AVERAGE GLUCOSE 140.0 MG/DL (60-110)
[2025-10-13 13:50] LABS: ALT/SGPT 16 U/L (7.0-40); AST/SGOT 27 U/L (<34); CALCIUM LEVEL 8.7 MG/DL (8.5-10.1); CARBON DIOXIDE LEVEL 28 MMOL/L (20-31); CHLORIDE LEVEL 99 MMOL/L (98-107); CHOLESTEROL LEVEL 190 MG/DL (<200); CHOLESTEROL RISK RATIO 4.20 (<5); CREATININE FOR GFR 0.98 MG/DL (0.70-1.30); GLOMERULAR FILTRATION RATE > 90.0 (>56); LDL CHOLESTEROL 99.8 MG/DL (<100); NON-HDL-C 144.8 MG/DL; POTASSIUM SERUM 4.2 MMOL/L (3.5-5.1); SODIUM LEVEL 138 MMOL/L (136-145); TRIGLYCERIDES LEVEL 225 MG/DL (<150)
== END ==
LOC: M PLALAB 11:10
PROVIDERS: ATTEND Physician Assistant Medical
DX: I10 Essential (primary) hypertension (principal); E78.5 Hyperlipidemia, unspecified; R73.01 Impaired fasting glucose; K76.0 Fatty (change of) liver, not elsewhere classified